=== PATIENT | male | born 1990 | race Caucasian/White ===

== ENCOUNTER 2017-09-20 00:46 | Inpatient (IN) | END 2017-09-21 11:57 | disposition home or self-care (01) | DRG 392 ==

== ENCOUNTER 2019-01-22 20:38 | Emergency (ER) | payer MEDICAID, OTHER ==
[~2019-01-22] VITALS: Ht 165.1 cm; Wt 64.5 kg
[~2019-01-22 20:38] MED LIST: ATOR10TA65 PO; CIPR500T4 PO; GEMF600T8 PO; METR-122 PO
[2019-01-22 20:44] VITALS: Ht 165.1 cm; Wt 64.5 kg
[2019-01-22] MEDS ORDERED: PANTOPRAZOLE IV 80 MG in SOD CHLORIDE 0.9% 100 ML IVPB STA (22:06)
[2019-01-22] MEDS ORDERED: SOD CHLORIDE 0.9% 1,000 ML IV STA (22:06)
[2019-01-22] MEDS ORDERED: ONDANSETRON 4 MG INJ IV STA (22:06)
--- NOTE | 2019-01-22 22:14 | ERD ---
ER Documentation Chief Complaint Chief Complaint Pt reports vomiting red and blck emesis since last night HPI This is a 28-year-old male with a past medical history of alcohol abuse and gastritis who is presenting with waxing and waning cramping aching burning epigastric abdominal pain with nausea and vomiting. The patient reports dry heaving today and spitting up sputum that was mixed with blood. It was initially red and then reportedly became dark. He does not endorse any other alleviating or exacerbating factors. He does not endorse black bloody or tarry stools. He does not endorse constipation or diarrhea. He does not endorse dysuria or hematuria or urgency or frequency. The patient denies fever or chills. The patient has had no headache or vision changes. The patient does not endorse neck or back pain. The patient denies lightheadedness or dizziness. The patient has had no chest pain or trouble breathing. The patient has had no focal deficits. The patient has had no weakness or numbness or tingling to the face or extremities. ROS All systems reviewed and are negative except as per history of present illness. Medications Home Meds Active Scripts Gemfibrozil* (Gemfibrozil*) 600 Mg Tablet, 600 MG PO BID for 30 Days, #60 TAB Prov:SÁNCHEZ,LOCO V. FORMULA TECHNICIAN 09/21/17 Atorvastatin Calcium (Atorvastatin Calcium) 10 Mg Tablet, 10 MG PO QHS, #30 TAB Prov:SÁNCHEZ,LOCO V. FORMULA TECHNICIAN 09/21/17 Metronidazole* (Metronidazole*) 500 Mg Tablet, 500 MG PO Q8 for 7 Days, #21 TAB Prov:SÁNCHEZ,LOCO V. FORMULA TECHNICIAN 09/21/17 Ciprofloxacin Hcl* (Ciprofloxacin Hcl*) 500 Mg Tablet, 500 MG PO BID, #14 TAB Prov:SÁNCHEZ,LOCO V. FORMULA TECHNICIAN 09/21/17 Allergies Allergies: Coded Allergies: No Known Allergy (Unverified , 09/19/17) PMhx/Soc Medical and Surgical Hx: pt denies Medical Hx, pt denies Surgical Hx History of Surgery: No Anesthesia Reaction: No Hx Neurological Disorder: No Hx Respiratory Disorders: No Hx Cardiac Disorders: No Hx Psychiatric Problems: No Hx Miscellaneous Medical Probl: Yes (Gastritis) Hx Alcohol Use: Yes (Heavy) Hx Substance Use: No Hx Tobacco Use: No Smoking Status: Never smoker FmHx Family History: No diabetes Physical Exam Vitals Vital Signs Date Temp Pulse Resp B/P (MAP) Pulse Ox O2 O2 Flow FiO2 Time Delivery Rate 01/22/19 99.7 124 24 152/88 99 20:44 (109) Physical Exam Const: No acute distress Head: Atraumatic Eyes: Normal Conjunctiva ENT: Normal External Ears, Nose and Mouth. Neck: Full range of motion. No meningismus. Resp: Clear to auscultation bilaterally Cardio: Regular rhythm, mild tachycardia, no murmurs Abd: Soft, non distended. Epigastric tenderness. Normal bowel sounds Skin: No petechiae or rashes Back: No midline or flank tenderness Ext: No cyanosis, or edema Neur: Awake and alert Psych: Normal Mood and Affect Result Diagram: 01/22/19214401/22/192144 Results 24 hrs Laboratory Tests Test 01/22/19 21:45 White Blood Count 17.1 10^3/ul Red Blood Count 5.21 10^6/ul Hemoglobin 17.0 g/dl Hematocrit 48.8 % Mean Corpuscular Volume 93.7 fl Mean Corpuscular Hemoglobin 32.6 pg Mean Corpuscular Hemoglobin Concent 34.8 g/dl Red Cell Distribution Width 12.4 % Platelet Count 484 10^3/UL Mean Platelet Volume 11.1 fl Immature Granulocytes % 0.600 % Neutrophils % 83.8 % Lymphocytes % 9.9 % Monocytes % 5.1 % Eosinophils % 0.1 % Basophils % 0.5 % Nucleated Red Blood Cells % 0.0 /100WBC Immature Granulocytes # 0.110 10^3/ul Neutrophils # 14.3 10^3/ul Lymphocytes # 1.7 10^3/ul Monocytes # 0.9 10^3/ul Eosinophils # 0.0 10^3/ul Basophils # 0.1 10^3/ul Nucleated Red Blood Cells # 0.0 10^3/ul Prothrombin Time 12.4 Sec Prothrombin Time Ratio 1.0 INR International Normalized Ratio 0.91 Activated Partial Thromboplast Time 30.0 Sec Sodium Level 144 mmol/L Potassium Level 3.6 mmol/L Chloride Level 99 mmol/L Carbon Dioxide Level 30 mmol/L Anion Gap 15 Blood Urea Nitrogen 19 mg/dl Creatinine 0.97 mg/dl Est Glomerular Filtrat Rate mL/min > 60 mL/min Glucose Level 140 mg/dl Calcium Level 10.2 mg/dl Total Bilirubin 0.6 mg/dl Direct Bilirubin 0.00 mg/dl Indirect Bilirubin 0.6 mg/dl Aspartate Amino Transf (AST/SGOT) 64 IU/L Alanine Aminotransferase (ALT/SGPT) 142 IU/L Alkaline Phosphatase 132 IU/L Total Protein 9.1 g/dl Albumin 5.3 g/dl Globulin 3.80 g/dl Albumin/Globulin Ratio 1.39 Lipase 55 U/L Ethyl Alcohol Level < 10.0 mg/dl Current Medications Medications Dose Sig/Linette Start Time Status Last (Trade) Ordered Route PRN Stop Time Admin Dose Reason Admin Sodium 1,000 ml @ Q1H STAT 01/22/19 DC 01/22/19 Chloride 1,000 mls/hr IV 22:06 22:10 01/22/19 23:05 Pantoprazole 100 ml @ ONCE STAT 01/22/19 DC 80 mg/Sodium 400 mls/hr IVPB 22:06 Chloride 01/22/19 22:16 Ondansetron 4 mg ONCE STAT 01/22/19 DC 01/22/19 HCl (Zofran IV 22:06 22:22 Inj) 01/22/19 22:08 80 mg ONCE ONCE 01/22/19 DC 01/22/19 Pantoprazole IV 22:30 22:22 (Protonix 01/22/19 22:31 Iv) Procedures/MDM MDM The patient's presentation warrants further investigation. Previous medical records, if available, were reviewed. LABS The patient's laboratory testing was obtained and reviewed. No emergent treatment was required unless described below. CBC: Leukocytosis, likely reactive. Thrombocytosis, likely reactive. No E/o anemia. Chemistry: No E/o severe acidosis or alkalosis or renal failure or diabetic ketoacidosis. BUN is normal, decreasing my suspicion for an upper GI bleed. Transaminitis evident, concerning for possible liver disease. Lipase: No E/o pancreatitis PT/INR: No E/o significant coagulopathy Tox: No E/o current alcohol use EKG EKG read by me: Rate/Rhythm: Regular rate and rhythm at a rate of 84 bpm Intervals: Normal Danielson: Normal Impression: No evidence of ischemia or arrhythmia IMAGING Imaging and Radiology interpretation reviewed. CXR 1V Interpreted by me Soft Tissue: No acute abnormalities Bones: No acute abnormalities Mediastinum/Cardiac Silhouette: Unremarkable. No widened mediastinum. Lungs: No acute abnormalities. Normal pulmonary vasculature. No pneumothorax. No pulmonary edema. Clear costal diaphragmatic angles. No pleural effusions. No opacity or consolidations concerning for pneumonia. TREATMENT/DISPOSITION The patient presents with epigastric abdominal pain and reported flecks of blood in his sputum while dry heaving. The patient has not had any episodes of hematemesis here throughout assessment. Given the patient's overall constellation of symptoms, gastritis is certainly a possibility. There is no evidence of viscus perforation. I have low suspicion for hematemesis. I do not suspect Greta-Kurtz tear or Boerhaave syndrome. There is also evidence of mild transaminitis which could be reactive or related to his history of alcohol abuse. This may be worked up in an outpatient setting. The patient was treated with IV fluids, Protonix and Zofran with significant improvement of his sym ptoms. The patient was later treated with a GI cocktail with continued improvement. The patient does not have any evidence of peritonitis. The patient does not have clinical symptoms concerning for mesenteric ischemia or ischemic colitis. The patient does not have right upper quadrant tenderness, and I have low suspicion for gallstones, cholecystitis or biliary colic. The patient does not have left upper quadrant tenderness. I have low suspicion for pancreatitis. The patient does not have any right lower quadrant tenderness, or periumbilical tenderness. I have low suspicion for appendicitis. The patient does not have suprapubic tenderness. I have decreased suspicion for cystitis. The patient does not have any left lower quadrant tenderness, and I have low suspicion for diverticulosis or diverticulitis. The patient does not have any flank tenderness. The patient does not have gross hematuria. I have decreased suspicion for nephrolithiasis or renal colic. The patient does not have any palpable pulsatile mass or severe abdominal pain radiating to the back. I have low suspicion for aortic aneurysm, dissection or rupture. The patient was initially tachycardic, but this improved after treatment with IV fluids. The patient is not febrile. I have low suspicion for sepsis. I do not feel the patient requires a septic work-up. While gastroenteritis could also be a potential etiology of symptoms, his symptoms have not been long-standing. Most gastroenteritis is self-limited. I do not feel the patient would benefit from antibiotics at this time. DISCHARGE Upon reevaluation of the patient, symptoms have improved. No emergent diagnoses were identified. At this time, I feel that the patient stable for discharge. The patient was instructed to follow-up with a primary care physician in 1-3 days. The patient will be given strict precautions with which to return to the emergency department. Prescriptions: Delfin Condon The patient's blood pressure was elevated at greater than 120/80 while in the emergency department. The patient was otherwise stable with no evidence of hypertensive urgency or emergency. The patient does not require admission for blood pressure control. I have discussed with the patient the risks of hypertension. I have instructed the patient to return to the ER for any new or worsening symptoms including chest pain, shortness of breath, headache, blurred vision, confusion, nausea, vomiting or LOC. I have advised the patient to follow up with the primary care physician for outpatient monitoring and treatment for hypertension in 1-3 days. Disclaimer: Inadvertent spelling and grammatical errors are likely due to EHR/dictation software use and do not reflect on the overall quality of patient care. Note that the electronic time recorded on this note does not necessarily reflect the actual time of the patient encounter. Departure Diagnosis: Primary Impression: Epigastric pain Additional Impressions: Nausea & vomiting Vomiting type: unspecified Vomiting Intractability: non-intractable Qualified Codes: R11.2 - Nausea with vomiting, unspecified Leukocytosis Leukocytosis type: unspecified Qualified Codes: D72.829 - Elevated white blood cell count, unspecified Thrombocytosis Transaminitis Condition: Stable Patient Instructions: Epigastric Pain (Uncertain Cause), Nausea and Vomiting- Adult Additional Instructions: Thank you for for coming to [facility] for your care today. Please ask your nurse or provider if you have questions about your care today and do not leave until all your questions have been answered. Please use any medications given as directed and follow-up with your doctor (or the doctor you were referred to) in the next 1-3 days. If you do not have a primary care doctor you may follow up at the [facility] or critical access hospital clinic (listed below). You may also use motrin and tylenol as needed for fever and/or pain unless instructed otherwise by your provider or nurse. Indications for more urgent follow-up have been discussed, but you may return to the Emergency Department at ANY time for any worrisome or worsening symptoms. If you have abdominal pain, please know that no test or exam you received is perfect and you should follow up within 8 hours for continued pain. If you had any imaging studies today, such as an X-Ray or CT Scan, these studies will be reviewed later by a radiologist. You will be called if there are important findings that were not identified today, so make sure the contact information you provided at registration is correct. If you received any narcotic pain control medicine today, such as Vicodin, Morphine or Dilaudid, your coordination and judgment may be affected for a numbe r of hours. Please do not drive or operate heavy machinery, and you may want someone to assist you at home. If you were given a prescription for narcotic medication, be aware that it is very addictive- use sparingly and only if necessary. PLEASE SEEK FURTHER EVALUATION AND MANAGEMENT AT YOUR DOCTORS OFFICE WITHIN THE NEXT 1-3 DAYS. IT IS YOUR RESPONSIBILITY TO MAKE AN APPOINTMENT FOR FOLOW-UP CAR E. IF YOU HAVE A PRIMARY DOCTOR, PLEASE CALL THEIR OFFICE TO SCHEDULE AN APPOINTMENT FOR FOLLOW UP. IF YOU DO NOT HAVE A PRIMARY DOCTOR YOU CAN CALL OUR PHYSICIAN REFERRAL HOTLINE AT IF YOU CAN NOT AFFORD TO SEE A PHYSICIAN YOU CAN CHOSE FROM THE FOLLOWING [facility] CLINICS: [facility] [address] [facility] [address] [facility] [facility] [address] [facility] [facility] [address] [facility]. [facility] [address] [facility] [facility]. [address] MEGAN BURNS MD January 22, 2019 22:14
[2019-01-22] MEDS ORDERED: PANTOPRAZOLE 40 MG INJ IV ONE (22:30)
[2019-01-23] MEDS ORDERED: FAMOTIDINE 20 MG INJ IV STA (00:20)
[2019-01-23] MEDS ORDERED: BELLADONNA/PHENOBARBITAL TAB PO STA (00:20)
[2019-01-23] MEDS ORDERED: LIDOCAINE/MYLANTA 40 ML BTL PO STA (00:20)
[2019-01-23] MEDS ORDERED: ONDA8TAB9 PO (00:27)
[2019-01-23] MEDS ORDERED: FAMO20TA18 PO (00:27)
[2019-01-23 01:10] VITALS: BP 115/78; PULSE 90; RESP 16
== END 2019-01-23 01:12 | disposition home or self-care (01) ==
LOC: E/R 20:38
DX: R10.13 Epigastric pain (principal); D72.829 Elevated white blood cell count, unspecified; R74.0 Nonspecific elevation of levels of transaminase and lactic acid dehydrogenase [LDH]
CPT/HCPCS: 36415; 71045; 80053; 80307; 83690; 85025; 85610; 85730; 86850; 86900; 86901; 93005; 96374; 96375; C9113; J2405; J7030; Z7502; Z7610